=== PATIENT | male | born 1975 | race African-American/Black ===

== ENCOUNTER 2017-03-29 12:17 | Emergency (ER) | payer BC, MEDICAID ==
[~2017-03-29] VITALS: Ht 185.4 cm; Wt 84.0 kg
[2017-03-29 12:34] VITALS: BP 116/65
[2017-03-29] MEDS ORDERED: BACITRACIN ZINC OINT UDPKT TOP ONE (13:00)
== END 2017-03-29 15:07 | disposition home or self-care (01) ==
LOC: ER 14:25
DX: Z48.01 Encounter for change or removal of surgical wound dressing (principal); F17.200 Nicotine dependence, unspecified, uncomplicated
CPT/HCPCS: 99283; Z7610